=== PATIENT | female | born 1995 | race Caucasian/White ===

== ENCOUNTER 2025-04-14 08:45 | Outpatient (CLI) | payer BC, SELFPAY ==
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
== END 2025-04-14 08:46 | disposition home or self-care (01) ==
PROVIDERS: PCP Nurse Practitioner; Visit Provider Nurse Practitioner
DX: M54.2 Cervicalgia (principal); M25.511 Pain in right shoulder; M54.9 Dorsalgia, unspecified
CPT/HCPCS: 72040; 72070; 72100; 73030

== ENCOUNTER 2025-06-02 09:57 | Outpatient (CLI) | payer BC, SELFPAY ==
--- OUTSIDE RECORDS SUMMARY | 2025-06-02 10:45 | XMS_ITS | Clinical Summary ---
Author Organization [address] Address [address] [place] [id number] Care Team Providers Care Cutter Aluminum Sheet Name Role Phone Staci Lilly MD Unavailable [phone] Liza Cedillo NP Primary Care Provider [phone] Allergies Active Allergy Reactions Criticality Noted Date Comments Sulfa (Sulfonamide Antibiotics) Hives High 07/11 Medications PNV cmb 23-whxn-IH-omega -3-dha 29 mg iron- 1 mg-200 mg combo pack Take by mouth Active cholecalciferol, vitamin D3, (VITAMIN D3 ORAL) Take by mouth Active Active Problems Problem Noted Date Diagnosed Date Atrial fibrillation with RVR 10/25/2024 Dyspnea 10/25/2024 Maternal hypotension syndrome in third trimester 10/25/2024 Pre-eclampsia in third trimester 10/23/2024 Headache in , antepartum, third trimest er 10/14/2024 34 weeks gestation of 10/14/2024 35 weeks gestation of 10/14/2024 History of pre-eclampsia in prior , currently 04/21/2024 Preeclampsia, severe, third trimester 02/12/2023 Gestational hypertension, third trimester 2022 Irritable bowel syndrome with diarrhea 8 Overview (11/29/2022): Negative GI eval previously Depression with anxiety 11/11/2014 Migraine with aura 09/14/2014 Assessment & Plan (12/09/2024 3:46 PM CDT): Denise presents with a longstanding history of migraines dating back to childhood. She reports 2-3 headaches per week typically post orbitally describes as squeezing sensation and headaches resolve after sleep. She uses Excedrin as needed and gets some relief. Associated symptoms of photophobia phonophobia, visual aura prior to headache onset. She reports fatigue following headache. She delivered a baby October 24, 2024 complicated by preeclampsia AFib RVR status post cardioversion in started on flecainide, and metoprolol. She has persistent blurry peripheral vision and flashing black Street swelling visual movement at night. These symptoms began after understanding new cardiac medication and patient's genetic supervisor as spikes blurry vision and black streaks may be related side effect. She currently is . Discussed she is not an ideal candidate for Triptan due to hypertension, AFib and RVR. Preventative treatment: Metoprolol 25 mg can be use as preventative. Acute treatment: Discussed with patient could try Nurtec. Encouraged to use migraines supportive supplements such as riboflavin, magnesium, and CQ10. Patient informed limited data of excretion of Nurtec on human breast milk is very low. She should Resolved Problems Problem Noted Date Diagnosed Date Resolved Date Chronic diarrhea 07/28/2017 11/29/2022 Rectal bleeding 07/28/2017 11/29/2022 Immunizations Immunization Administration Dates Next Due DTaP / HiB 05/10/1996,02/26/1996,1995 DTaP / IPV 12/09/2000, 7,02/26/1996,12/21 DTaP 5 Pertussis 12/09/2000,04/26/1997 DTaP, Unspecified 12/09/2000,04/26/1997 HPV, Quadrivalent 08/16/2010,04/09/2010,02/08/20 10 HPV, Unspecified 08/16/2010,04/09/2010, 0 Hep A, Adult 02/07/2010,08/09/2008 Hep A, Unspecified 02/07/2010,08/09/2008 Hep B Vaccine 08/09/2008, 6,1995,10/22 IPV 12/09/2000, 7,02/26/1996,12/21 Influenza, Quadrivalent, Spl it, Intramuscular 05/15/2017 Influenza, Quadrivalent, Spl it, Preservative Free, Intramuscular 04/16/2017 Influenza, Trivalent, Preser vative Free, Intramuscular 08/16/2010 Influenza, Unspecified 05/20/2018 MMR 12/09/2000,02/03/1997 MMRV 12/09/2000,02/03/1997 Meningococcal MCV4P (Menactra) 03/25/2012,2007 Tdap 09/10/2024,12/20/2022,02/10/2008 Surgical History Surgery Date Site/Laterality Comments SECTION Medical History Medical History Date Comments IBS (irritable bowel syndrome) Migraines with aura PCOS (polycystic ovarian syndrome) 2021 Family History Medical History Relation Name Comments Brain cancer Father Chito Mary glioblastoma Irritable bowel syndrome Father Chito Mary Arthritis Maternal Grandfather Kelley Gupta Cancer Maternal Grandfather Kelley Gupta skin Prostate cancer Maternal Grandfather Kelley Gupta Diabetes Paternal Grandfather Frandy Mary Heart attack Paternal Grandfather Frandy Mary Colon cancer Paternal Grandmother Rimma Mary Hearing loss Paternal Grandmother Rimma Mary Breast cancer Neg Hx Ovarian cancer Neg Hx Uterine cancer Neg Hx Relation Name Status Comments Brother Alessio Alive Father Chito Mary Maternal Grandfather Kelley Gupta Mother Brigette Alive Paternal Grandfather Frandy Mary Paternal Grandmother Rimma Mary Social History Tobacco Use Types Packs/Day Years Used Date Smoking Tobacco: Never Smokeless Tobacco: Never Tobacco Cessation:Counseling Given: Not Answered Alcohol Use Standard Drinks/Week Comments Yes 0 (1 standard drink = 0.6 oz pur e alcohol) Social Humiliation, Afraid, Rape, and Kick questionnair e Answer Date Recorded Fear of Current or Ex-Partner No Emotionally Abused No 09/13/2019 Physically Abused No 09/13/2019 Sexually Abused No 09/13/2019 Social Connection and Isolation Panel Answer Date Recorded In a typical week, how many times do you talk on the phone with family, friends, or neighbors? More than three times a week 02/12/2023 How often do you get togethe r with friends or relatives? Twice a week 02/12/2023 How often do you attend [facility] or gnosticism services? 1 to 4 times per year 02/12/2023 Do you belong to any clubs o r organizations such as cheondoism groups, unions, fraternal or athletic groups, or school groups? Yes 02/12/2023 How often do you attend meet ings of the clubs or organizations you belong to? 1 to 4 times per year 02/12/2023 Are you , , di vorced, , never , or living with a partner? 02/12/2023 AUDIT-C Answer Date Recorded Q1: How often do you have a drink containing alcohol? Monthly or less 02/23/2025 Q2: How many drinks containi ng alcohol do you have on a typical day when you are drinking? Patient does not drink Q3: How often do you have si x or more drinks on one occasion? Never 02/23/2025 Overall Financial Resource Strain (CARDIA) Answe r Date Recorded How hard is it for you to pa y for the very basics like food, housing, medical care, and heating? Not hard at all 10/23/2024 PHQ-2 Answer Date Recorded PHQ-2 Total Score (If total score is 3 or more points, staff should administer the PHQ-9) 0 10/23/2024 [facility] - Occupational Stress Questionnaire Answer Date Recorded Do you feel stress - tense, restless, nervous, or anxious, or unable to sleep at night because your mind is troubled all the time - these days? Not at all 10/23/2024 Exercise Vital Sign Answer Date Recorde d On average, how many days pe r week do you engage in moderate to strenuous exercise (like a brisk walk)? 3 days 02/12/2023 On average, how many minutes do you engage in exercise at this level? 30 min 02/12/2023 Hunger Vital Sign Answer Date Recorded Within the past 12 months, y ou worried that your food would run out before you got the money to buy more. Never true 10/24/19 25 Within the past 12 months, t he food you bought just didn't last and you didn't have money to get more. Never true 10/23/2024 PRAPARE - Transportation Answer Date Re corded In the past 12 months, has l ack of transportation kept you from medical appointments or from getting medications? No 03/1 12/2024 In the past 12 months, has l ack of transportation kept you from meetings, work, or from getting things needed for daily living? No 10/23/2024 Housing Stability Vital Sign Answer David e Recorded In the last 12 months, was t here a time when you were not able to pay the mortgage or rent on time? No 02/12/2023 Number of Places Lived in the Last Year Not on f ile 02/12/2023 In the last 12 months, was t here a time when you did not have a steady place to sleep or slept in a [place] (including now)? No 02/12/2023 [place] Depression Scale Answer Date Recorded [place] Depression Scale Total 4 12/14/2024 The thought of harming myself has occurred to me . Never 12/14/2024 Housing Stability Vital Sign Answer David e Recorded In the last 12 months, was t here a time when you were not able to pay the mortgage or rent on time? No 10/23/2024 Number of Times Moved in the Last Year Not on fi le 10/23/2024 At any time in the past 12 m [facility], were you homeless or living in a [place] (including now)? No 10/23/2024 Personal Safety Answer Date Recorded Have you ever been in or are you currently in a harmful physical or emotional relationship or is someone making you feel afraid or unsafe? Denies 01/02/2025 Education Answer Date Recorded What is the highest level of school you have completed or the highest degree you have received? 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 Not on file Not on file Obstetrics History Para Term AB IAB SAB Ectopic Multiple Livin g Live Births 3 2 0 2 1 0 1 0 0 2 2 Date Outcome GA Total Labor Labor/2nd/3rd Weight Sex Type Anes PTL Camila A1 A5 Name Clin 2022 36w 1d 0h 36m 0h 29m/0h 07m 2.69 kg (5 lb 14.9 oz) F Vagina l Epidur al Livin g 8 9 MK DIAZ, Sindi Chapman MD Complications:Pre eclampsia Delivery Location:This Facil ity ([facility]) SAB 2024 35w 6d 0h 01m 0h 01m 2.722 kg (6 lb) M C-Sect ion Epidur al N Livin g 7 9 Marsha mccallum, Les Abad MD PhD Complications:Other (Comment ) Delivery Location:This Facil ity ([facility] PROCEDURE) Comments:see hayden shelton note Last Filed Vital Signs Vital Sign Reading Time Taken Comments Blood Pressure 112/72 02/25/2025 8:47 AM CDT Pulse 71 02/25/2025 8:47 AM CDT Temperature 36.2 C (97.1 F) 01/02/2025 11:39 AM CDT Respiratory Rate 19 01/02/2025 1:00 PM CDT Oxygen Saturation 97% 01/02/2025 1:00 PM CDT Inhaled Oxygen Concentration - - Weight 82 kg (180 lb 11.2 oz) 02/25/2025 8:47 AM CDT Height 175.3 cm (5' 9) 02/25/2025 8:47 AM CDT Body Mass Index 26.68 02/25/2025 8:47 AM CDT Plan of Treatment Health Maintenance Due Date Last Done Comments Regular Well Visit/Exam 18-64 06/01/2022 06/01/2021, 09/14/2020, 09/13/2019 Covid-19 Vaccine ( season) 2025 12/06/2020, 11/17/2020 Influenza Vaccine (#1) 2025 8, 05/15/2017, 04/16/2017, Additional history exists Cervical Cancer Screening 05/21/2025 05/21/2024, 11/2020 Depression Screening 12/14/2025 12/14/2024, 10/14/2024, 02/05/2023, Additional history exists DTaP/Tdap/Td Vaccine (9 - Td or Tdap) 09/10/2034 09/10/2024, 12/20/2022, 02/10/2008, Additional history exists Varicella Vaccines Completed 12/09/2000, 02/03/1997 Hepatitis B Screening Completed 08/09/2008 , 1995, 1995, Additional history exists HPV Vaccines Completed 08/16/2010, 01/2011, 04/09/2010, Additional history exists Hepatitis C Screening Completed 04/21/2024, 022 Pneumococcal vaccine <65 Aged Out No longer eligible based on patient's age to complete this topic Procedures Procedure Name Priority Date/Time Associated Diagnosis Comments PAP WITH REFLEX TO HIGH RISK HPV Routine 05/21/2024 11:33 AM CDT First trimester HEPATITIS C ANTIBODY Routine 04/21/2024 12:04 PM CDT with inconclusive viability, single or unspecified fetus Routine screening for STI (sexually transmitted infection) from Last 3 Months or Most Recently Relevant to Health Maintenance Results * Pap with reflex to High Risk HPV and Genotyping (Cytology Component) (05/21/2024 11:33 AM CDT) Endocervical (Pap test) 05/21/2024 11:33 AM CDT 05/24/2024 2:37 PM CDT Narrative PATHOLOGY [facility] - 05/27/2024 5:17 PM CDT [facility] results best viewed via link to PDF [address] [address] Tele: Yue Cruz MD - Registry Np CYTOLOGY REPORT Note to Patients: This report may contain a detailed description of human tissue sent by a health care provider to the laboratory for pathologic evaluation. The content of this report is essential for diagnosis and may provide important critical findings. This information may be unfamiliar to patients to review without a medical professional present. It is advised that the patient review this report in the presence of a health care provider who can answer questions and explain the details. Patient Name: DENISE MONTANA Address: [address] [place] [address] Gender: F : 1995 (Age: 28) Service: Location: N : [id number] [facility] #: [id number] Patient Type: [facility] SPECIMEN Taken: 05/21/2024 Reported: 05/27/2024 Physician(s): Staci Lilly M.D. FINAL DIAGNOSIS: SOURCE OF SPECIMEN - ThinPrep Pap w/ reflex HPV: STATEMENT OF ADEQUACY Source: Cervical/Endocervical - Satisfactory for interpretation - Endocervical/Transformation zone component absent or insufficient - Case screened using computer assisted imaging technology and manually re- screened by a plate roller. GENERAL CATEGORIZATION: - Negative for intraepithelial lesion or malignancy donna/05/27/2024 17:17JAROCHO Herndon(ASCP), CFIAC Report Reviewed and Electronically Signed By JAROCHO Herndon(ASCP), CFIACClerical Data Follow A; [id number] CLINICAL DIAGNOSIS AND HISTORY Last Menstrual Period: 02/14/2024 Menstrual History: REPORT IMAGES AND/OR SCANNED DOCUMENTS ONLY VIEWABLE IN PDF FORMAT The Pap test is a screening test used to aid in the detection of cervical cancer and its precursors. It should not be the sole means by which malignant and premalignant lesions are diagnosed. Both false negative and false positive results may occur. It also has poor sensitivity for the detection of endometrial lesions and should not be used to evaluate suspected endometrial abnormalities. For these reasons it is most important to obtain Pap tests at regular intervals, as recommended by your physician or nurse practitioner. Frozen section, operating room consultation, gross examination and dissection, and case sign out may have been performed in part or completely in the following laboratories: [facility], [address] [place] [id number] [place] [address], [address] [facility] [address], [place] [address]. us Staci Lilly MD LAB CYTOLOGY ORDERABLE S Final Result PATHOLOGY [facility] Laboratory Receiving [address] [place] [id number] * Hepatitis C antibody Blood (04/21/2024 12:04 PM CDT) Hep C Ab Nonreactive Nonreactive Comment: Interpretive Data Nonreactive: Antibodies to HCV not detected. Does NOT exclude the possibility of recent exposure to HCV. Equivocal: Equivocal for HCV antibodies. Supplemental molecular testing will be automatically performed to determine infection status in accordance with current CDC screening recommendations. Reactive: Positive for HCV antibodies. This may represent current or past HCV infection. Supplemental molecular testing will be automatically performed to determine current infection status in accordance with current CDC screening recommendations. Interpretive data was last revised on 2019. Blood 04/21/2024 12:0 4 PM CDT 04/21/2024 1:59 PM CDT Trish GREIR LAB MICROBIOLOGY - [facility] L ORDERABLES Final Result [facility] [address] Department [place] [address] from Last 3 Months or Most Recently Relevant to Health Maintenance Insurance Att[employer] OOS Att[employer] Advance Directives For more information, please contact: [phone] * Full Code (Latest Code Status on File) Date Activated Date Inactivated Comments 10/26/2024 4:12 PM 10/29/2024 3:05 PM * Full Code Date Activated Date Inactivated Comments 10/24/2024 9:33 AM 10/26/2024 4:12 PM * Full Code Date Activated Date Inactivated Comments 10/23/2024 10:49 PM 10/24/2024 9:33 AM * Full Code Date Activated Date Inactivated Comments 02/14/2023 1:36 AM 02/16/2023 10:36 PM * Full Code Date Activated Date Inactivated Comments 02/12/2023 9:55 PM 02/14/2023 1:01 AM Full CPR in ca se of cardiopulmonary arrest Care Teams Cutter Aluminum Sheet Relationship Specialty Start Date End Date Liza Cedillo NP [address] [place] [address] PCP - General Internal Medicine 05/24/25 Staci Lilly MD Consulting Physician Obstetrics and Gynecology 02/15/23
--- OUTSIDE RECORDS SUMMARY | 2025-06-02 10:46 | XMS_ITS | Encounter Summary ---
Author Organization [facility] Address [address] [place] [address] Care Team Providers Care Student Records Coordinator Name Role Phone Staci Lilly MD Unavailable [phone] Marleny Oakes MD Primary Care Provider Liza Cedillo NP Primary Care Provider [phone] Encounter Details Date Type Department Care Team (Late st Contact Info) Description 11/27/2024 Documentation [facility] [address] [place] [address] Rebecca Perry, JIMBO Social History Tobacco Use Types Packs/Day Years Used Date Smoking Tobacco: Never Smokeless Tobacco: Never Alcohol Use Standard Drinks/Week Comments Yes 0 [...] week 02/12/2023 How often do you attend chur or mandaen services? 1 to 4 times per year 02/12/2023 Do you belong to any clubs o r organizations such as adventist groups, unions, fraternal or athletic groups, or school groups? Yes 02/12/2023 How often do you attend meet ings of the clubs or organizations you belong to? 1 to 4 times per year 02/12/2023 Are you , , di vorced, , never , or living with a partner? 02/12/2023 AUDIT-C Answer Date Recorded Q1: How often do you have a drink containing alcohol? Never 02/12/2023 Q2: How many drinks containi ng alcohol do you have on a typical day when you are drinking? Patient does not drink Q3: How often do you have si x or more drinks on one occasion? Never 02/12/2023 Overall Financial Resource Strain (CARDIA) Answe r Date Recorded How hard is it for you to pa y for the very basics like food, housing, medical care, and heating? Not hard at all 10/23/2024 PHQ-2 Answer Date Recorded PHQ-2 Total Score (If total score is 3 or more points, staff should administer the PHQ-9) 0 10/23/2024 [facility] - Occupational Stress Questionnaire Answer Date Recorded [...] medical appointments or from getting medications? No 10/09 In the past 12 months, has l [...] place to sleep or slept in a chcf (including now)? No 02/12/2023 [place] Depression Scale Answer Date Recorded [place] Depression Scale Total 5 11/12/2024 The thought of harming myself has occurred to me . Never 11/12/2024 Housing Stability Vital Sign Answer David e Recorded In the last 12 months, was t here a time when you were not able to pay the mortgage or rent on time? No 10/23/2024 Number of Times Moved in the Last Year Not on fi le 10/23/2024 At any time in the past 12 m [facility], were you homeless or living in a chcf (including now)? No 10/23/2024 Personal Safety Answer Date Recorded Have you ever been in or are you currently in a harmful physical or emotional relationship or is someone making you feel afraid or unsafe? Denies 10/23/2024 Education Answer Date Recorded What is the highest level of school you have completed or the highest degree you have received? 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 Patient describes 100.9 temp, chills, body aches, red streaks in breast, and decreased yield. Enc to call OB for possible ABX tx, emptying breast, rest, and hydration. documented in this encounter Plan of Treatment Not on file documented as of this encounter Visit Diagnoses Not on filedocumented in this encounter Care Teams Student Records Coordinator Relationship Specialty Start Date End Date Marleny Oakes MD PCP - General Family Medicine 11/20/23 05/23/25 Liza Cedillo NP [address] [facility] [address] [place] [address] PCP - General Internal Medicine 05/24/25 Staci Lilly MD Consulting Physician Obstetrics and Gynecology 02/15/23 documented as of this encounter
[2025-06-02 18:58] LABS: Hematocrit 46.2 % (37.0-47.0); Hemoglobin 14.9 g/dL (12.0-15.0); Immature Granulocyte Percent A 0.3 % (0-0.5); Lymphocytes Absolute Auto 1.69 K/mm3 (0.9-3.2); Mean Corpuscular HGB Conc 32.3 g/dl (32-36); Mean Corpuscular Hemoglobin 28.6 pg (26-34); Mean Corpuscular Volume 88.7 fl (80-100); Nucleated Red Blood Cells Absolute Auto 0.000 K/mm3 (0.0-0.012); Nucleated Red Blood Cells Perc 0.0 % (0.0-0.2); Platelet Count Result 278 k/mm3 (150-375); Red Blood Count 5.21 M/mm3 (4.2-5.4); White Blood Count 7.2 K/mm3 (4.5-10.0)
[2025-06-02 22:43] LABS: Alanine Aminotransferase 15 U/L (6-35); Albumin Level 4.8 g/dL (3.5-5.1); Alkaline Phosphatase 94 U/L (38-126); Anion Gap 10 mmol/L (4-12); Aspartate Amino Transferase 24 U/L (14-36); Bilirubin,Total 0.6 mg/dL (0.2-1.3); Blood Urea Nitrogen 12 mg/dL (7-17); Calcium 9.4 mg/dL (8.4-10.2); Carbon Dioxide 25 mmol/L (22-30); Chloride 105 mmol/L (98-107); Cholesterol 197 mg/dL (0-200); Estimated Glomerular Filt Rate > 60; Glucose 82 mg/dL (65-110); HDL Direct 62 mg/dL; Potassium 4.3 mmol/L (3.4-5.0); Sodium 140 mmol/L (137-145); Total Protein 8.5 g/dL (6.3-8.2); Triglycerides 79 mg/dL (<150)
[2025-06-02 23:56] LABS: Thyroid Stimulating Hormone 1.610 uIU/mL (0.465-4.680)
== END 2025-06-02 09:58 | disposition home or self-care (01) ==
LOC: ANHGOSHLAB 09:58
PROVIDERS: PCP Internal Medicine; Visit Provider Nurse Practitioner
DX: R00.2 Palpitations (principal); K58.0 Irritable bowel syndrome with diarrhea
CPT/HCPCS: 36415; 80053; 80061; 82306; 84443; 85025